=== PATIENT | male | born 1995 | race Caucasian/White ===

== ENCOUNTER 2018-05-17 18:48 | Emergency (ER) | payer OTHER, BC ==
[2018-05-17] MEDS: NAPROXEN 250 MG TAB PO (19:23)
[2018-05-17] MEDS: METHOCARBAMOL 750 MG TAB PO (19:23)
== END 2018-05-17 19:20 | disposition home or self-care (01) ==
LOC: M ED 18:48
DX: S39.002A Unspecified injury of muscle, fascia and tendon of lower back, initial encounter (principal); X50.0XXA Overexertion from strenuous movement or load, initial encounter; Y92.89 Other specified places as the place of occurrence of the external cause; Y99.0 Civilian activity done for income or pay; M54.16 Radiculopathy, lumbar region; F17.210 Nicotine dependence, cigarettes, uncomplicated
CPT/HCPCS: 99282